=== PATIENT | male | born 1970 | race African-American/Black ===

== ENCOUNTER 2020-01-23 16:34 | Outpatient (REF) | payer OTHER, SELFPAY ==
[2020-01-23 18:22] LABS: Glucose Urine UA NEG (NEG); Leukocyte Esterase Urine NEG (NEG); Nitrite Urine NEG (NEG); Specific Gravity - Urine >= 1.030 (1.005-1.025); Urine Blood TRACE (NEG); Urine Ketones NEG (NEG); Urine Protein NEG (NEG-TRACE)
[2020-01-23 18:24] LABS: Appearance Urine CLEAR; Color Urine YELLOW
[2020-01-23 18:38] LABS: RBC Urine 0-2 /HPF (0); WBC Urine 0 /HPF (0-4)
[2020-01-23 18:43] LABS: Alanine Aminotransferase 32 U/L (0-40); Albumin Level 4.2 g/dL (3.5-5.0); Alkaline Phosphatase 77 U/L (39-117); Anion Gap 11 (12-20); Aspartate Amino Transferase 25 U/L (5-37); Bilirubin Total 0.4 mg/dL (0.0-1.0); Blood Urea Nitrogen 10 mg/dL (9-16); Calcium 9.2 mg/dL (8.4-10.2); Carbon Dioxide 31 mmol/L (22-29); Chloride 102 mmol/L (96-108); Cholesterol 199 mg/dL; Estimated Glomerular Filt Rate > 60; Glucose Fasting 89 mg/dL (60-99); HDL Cholesterol 35 mg/dL; LDL Cholesterol Calculated 154 mg/dl; Potassium 4.4 mmol/l (3.3-5.1); Sodium 140 mmol/L (135-145); Total Protein 7.6 g/dL (6.5-8.0); Triglycerides 51 mg/dL
[2020-01-23 18:47] LABS: Creatinine Urine 233.79 mg/dL; Microalbum/Creatinine Ratio Ur 2.5 ug/mg cr
[2020-01-23 18:59] LABS: TSH reflex Free T4 1.19 mIU/mL (0.32-4.0)
[2020-01-23 20:48] LABS: Reflex LDLD? No
== END 2020-01-23 16:35 | disposition home or self-care (01) ==
LOC: HO.LAB 16:34
PROVIDERS: PCP Internal Medicine; Visit Provider Internal Medicine
DX: E11.9 Type 2 diabetes mellitus without complications (principal); I10 Essential (primary) hypertension; E78.00 Pure hypercholesterolemia, unspecified; E66.9 Obesity, unspecified
CPT/HCPCS: 80053; 80061; 81001; 82043; 84443

== ENCOUNTER → 2020-02-06 13:56 | Outpatient (BNVA) | payer OTHER, SELFPAY | PROVIDERS: PCP Internal Medicine; Referring Provider Internal Medicine; Visit Provider Internal Medicine | DX: R55 Syncope and collapse (principal); R94.31 Abnormal electrocardiogram [ECG] [EKG] | CPT/HCPCS: 99202 ==

== ENCOUNTER → 2020-02-24 08:44 | Outpatient (REF) | payer OTHER, SELFPAY ==
--- NOTE | 2020-02-24 08:49 | CA_ITS ---
Acquisition Time: 2020-02-24 10:28:38 Total Exercise Time: 00:06:50 Test Indications: Syncope Medications: ATORVASTATIN VALSARTAN Protocol: MONICA Max HR: 176 BPM 104% of Pred: 169 BPM Max BP: 150/070 mmHG Max Work Load: 8.2 METS Exercise stress test using Monica protocol. Total of 6 min 50 sec. METS 8.2. THR 104 %. Pt reported feeling dizzy, HR up to 173, tesdt stopped. Denies any anginal sx. EKG with RBBB, occ PVC's in recovery. No ischemic changes. Normotensive response to exercise. Test reviewed with Dr. Pedraza. Referred By: Matt Pedraza Overread By: Jennifer Strong
--- NOTE | 2020-02-24 08:49 | CA_ITS ---
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 The visually estimated ejection fraction is between 60-65%. - There is moderately increased left ventricular wall thickness. - No obvious valvular pathology seen on this study. Findings Left Ventricle Normal left ventricular cavity size. There is moderately increased left ventricular wall thickness. The left ventricular systolic function is normal. The visually estimated ejection fraction is between 60-65%. There is no evidence of regional wall motion abnormalities. Diastolic function is normal for age. Right Ventricle Normal right ventricular cavity size and systolic function. Atria The left atrium is normal in size. The right atrium is normal in size. Aortic Valve There is a normal trileaflet aortic valve. There is no aortic valve stenosis. There is no aortic valve regurgitation. Mitral Valve The mitral valve appears normal. There is trace mitral valve regurgitation. There is no mitral valve stenosis. Pulmonic Valve The pulmonic valve was not well visualized. Tricuspid Valve Normal tricuspid valve structure. There is trace tricuspid valve regurgitation. The pulmonary artery systolic pressure is normal. Great Vessels The aortic annulus, sinuses of valsalva, and asc aorta are normal in size. Venous The inferior vena cava is normal in size and collapses greater than 50% with inspiration. Pericardium/Pleural There is no evidence of pericardial effusion. Prior Study Comparison No prior study available for comparison. Recommendations, Care & Conclusions No obvious valvular pathology seen on this study. Measurements 2D Linear Measurements IVSd: 1.44 0.6-0.9/0.6-1.0 cm LVIDd: 5.02 3.9-5.3/4.2-5.9 cm LVIDd Index: 2.36 2.4-3.2/2.2-3.1 cm/m2 LVIDs: 2.86 2.0-3.6 cm LVPWd: 1.36 0.7-1.1 cm Ao Root: 3.40 2.1-3.5 cm LA Diam: 3.70 2.7-3.8/3.0-4.0 cm LAIDs Index: 1.74 1.5-2.3 cm/m2 LV Mass: 365.77 67-162/88-224 g LV Mass Index: 171.72 43-95/49-115 g/m2 LVOT Diam: 2.20 3.0+(-)1.3 cm 2D Systolic Function EF 4C: 62.10 >55% EF 2C: 50.60 >55% EF BiP: 55.90 >55% Mitral Valve MV Pk E: 0.95 MV PK A: 0.64 MV Decel Time: 229.00 E/A: 1.50 E'Lateral: 12.80 E'Medial: 7.45 E/E' Med: 12.80 E/E' Lat: 7.40 PHT: 67.00 MVA PHT: 3.28 Decel [place]: 4.15 Aortic Valve AoV Pk Brayden: 1.38 AoV Mn Brayden: 0.96 AoV VTI: 0.30 AoV Pk Grad: 8.00 Aov Mn Grad: 4.00 ENRRIQUE Cont.VTI: 2.88 LVOT LVOT Pk Brayden: 1.00 LVOT Mn Brayden: 0.74 LVOT VTI: 0.23 LVOT Pk Grad: 4.00 LVOT Mn Grad: 2.00 LVOT Diam: 2.20 LVOT Area: 3.80 Diastolic Function MV Pk E: 0.95 MV Pk A: 0.64 E/A: 1.50 E'Medial: 7.45 E/E' Med: 12.80 E' Laterial: 12.80 E/E' Lat: 7.40 Tricuspid Valve TR Pk Brayden: 1.64 TR Pk Grad: 11.00 RA Press: 3.00 RVSP: 14.00 Great Vessels Aorta Ao Root-2D: 3.40 2.0-3.7 cm Ao Asc: 3.10 2.1-3.4 cm Pulmonary Valve PV Pk Brayden: 1.19 Peak PV Grad: 6.00 Updated in Other Vendor System with Status of Final Matt Pedraza MD electronically signed on 02/26/2020 9:46:13 AM with status of Final
== END ==
LOC: HO.CARD 08:44
PROVIDERS: Visit Provider Internal Medicine
DX: I25.10 Atherosclerotic heart disease of native coronary artery without angina pectoris (principal); R55 Syncope and collapse
CPT/HCPCS: 93017; 93306

== ENCOUNTER → 2020-03-21 12:48 | Outpatient (BNVA) | payer OTHER, SELFPAY | PROVIDERS: PCP Internal Medicine; Visit Provider Internal Medicine | DX: Z76.89 Persons encountering health services in other specified circumstances (principal) ==

== ENCOUNTER → 2021-03-25 14:57 | Outpatient (BNVA) | payer OTHER, SELFPAY | PROVIDERS: PCP Internal Medicine; Referring Provider Internal Medicine; Visit Provider Internal Medicine | DX: R94.31 Abnormal electrocardiogram [ECG] [EKG] (principal); I45.2 Bifascicular block; I10 Essential (primary) hypertension; E66.9 Obesity, unspecified; Z68.36 Body mass index [BMI] 36.0-36.9, adult | CPT/HCPCS: 93005; 99212 ==

== ENCOUNTER 2021-04-16 14:30 | Emergency (ER) | payer OTHER, SELFPAY ==
--- NOTE | ~2021-04-16 | CT_ITS ---
EXAMINATION: CT HEAD WITHOUT CONTRAST CLINICAL INFORMATION: Facial twitch COMPARISON: None TECHNIQUE: Contiguous axial imaging was performed from the skull base to vertex without intravenous administration of contrast. Coronal and sagittal reformatted images are performed at CT scanner This CT examination was performed using dose optimization techniques as appropriate, variously including the following: *Automated exposure control *Adjustment of mA and/or kV according to patient size (this includes techniques or standardized protocols for targeted exams where dose is matched to indication/reason for exam; i.e. extremities or head) *Use of iterative reconstruction technique DLP: 805 mGy-cm FINDINGS: There is no evidence of acute intracranial hemorrhage or territorial infarction. No abnormal mass effect or midline shift is seen. Rhodes to white matter differentiation is well preserved. No extra-axial fluid collections are identified. The ventricles are normal in size. There is no abnormal attenuation within the brain parenchyma. The osseous structures and soft tissues are normal. The mastoid air cells and visualized portions of the paranasal sinuses are well aerated. CT/CT head/brain wo con IMPRESSION: No acute intracranial pathology.
[2021-04-16 15:22] VITALS: BP 151/84; PULSE 70; RESP 18; TEMP 36.4; O2SAT 97; BMI 35.7
--- NOTE | 2021-04-16 15:56 | ED_ITS ---
HPI - General Adult General Chief complaint: General Medical Stated complaint: abnormal involuntary facial movement Time Seen by Provider: 04/16/21 15:46 Source: patient Mode of arrival: ambulatory Limitations: no limitations History of Present Illness HPI narrative: 50 y/o male with history of DM not on insulin, HTN, HLD, obesity, hx syncope, hx bifasicular block who presents to the ER for evaluation of an involuntary facial twitch near his lip that happened 2 days ago and an involuntary twitch of the eyebrow that happened today. He reports only 2 isolated events and both were very transient. He wanted to get checked out because I thought I might be having a stroke. He denies any facial numbness, tingling, weakness, dropping or slurred speech. No extremity weakness, numbness or tingling. No difficulty walking. MD complaint: facial twitching Onset (ago): day(s) (2) Location: face Radiation: non-radiation Severity: mild Pain Consistency: now resolved Relieving factors: none Exacerbating factors: none Associated symptoms: denies other symptoms Treatments prior to arrival: none Related Data Previous Rx's Medication Instructions Recorded atorvastatin 10 mg tablet 10 mg PO DAILY 30 Days #30 tab 06/07/20 valsartan 40 mg tablet 40 mg PO DAILY #30 tab 03/08/21 Allergies Allergy/AdvReac Type Severity Reaction Status Date / Time amlodipine AdvReac Intermediate Chest pain Verified 03/25/21 15:06 lisinopril AdvReac Intermediate Chest pain Verified 03/25/21 15:06 Review of Systems Review of Systems: Constitutional: No Fever, No Chills Eyes: No Eye Pain, No Swelling, No Redness Cardiovascular: No Chest Pain, No SOB Respiratory: No Cough, No Sputum Gastrointestinal: No Nausea, No Vomiting Musculoskeletal: No joint pain, No Myalgias Skin: No Skin Lesions, No rash Neuro: No Weakness, No Numbness, No Dizziness, No Headache Psych: + Anxiety/Panic, No Depression Heme/Lymph: No Bruising, No Lymphadenopathy Endocrine: No Polyuria, No Polydipsia PMFSH Past Medical History Medical History (Updated 04/16/21 @ 16:10 by SAGAR Dodge) Benign essential hypertension Essential hypertension Obesity (BMI 30-39.9) Pure hypercholesterolemia Type 2 diabetes mellitus with unspecified complications Type 2 diabetes mellitus without complication, with no history of insulin use Surgical History No pertinent past surgical history Family History Family History Father No problems noted. Mother COVID-19 Brother No problems noted. Brother No problems noted. Social History Social History (Updated 03/25/21 @ 15:06 by JOLEEN Dobbs) Alcohol intake: never Patient Tobacco Use Status: Never used Tobacco Advance Directives: No Advance Directives Information Provided: Yes Physical Exam Vital Signs: Vital Signs: Last Vital Signs Temp 97.5 F 04/16/21 15: Pulse 70 04/16/21 15: Resp 18 04/16/21 15: BP 151/84 H 04/16/21 15: Pulse Ox 97 04/16/21 15: BMI result Body Mass Index 35.7 Appearance: Alert. Oriented X3. No acute distress. Eyes: Pupils equal, round and reactive to light. EOMI. no visual field deficits ENT: Pharynx normal. Neck: Normal inspection. Neck supple. CVS: Normal heart rate and rhythm. Pulses normal. Respiratory: No respiratory distress. Breath sounds normal. Skin: Skin warm and dry. Normal skin color. Normal skin turgor. No rashes. Extremities: No lower extremity edema. Neuro: Oriented X 3. No motor deficit. No sensory deficit. No facial asymmetry. Normal speech. Steady gait. Strength equal and symmetrical througho ut. Course Course Course Narrative: 50 y/o male presenting with 2 isolated instances of facial twi tches in the last 2 days. Neuro exam is completely normal. He is worried about a stroke. We discussed the presentation of a stroke and how is exam is not consistent with this however he still worried about stroke symptoms. Will check his basic lab workup including his electrolytes and also get a CT scan of his head for reassurance. We discussed the radiation exposure and has a likelihood of stroke is very low given his exam and presentation however he is willing to accept the radiation to help ease his mind. Reevaluation(s) Reevaluation #1: Lab workup and CT scan are normal. Patient's facial twitching most likely due to stress and anxiety. Stable for discharge home. Encouraged take his medications as prescribed by his doctor in follow-up with his PCP we has not seen in quite some time. Medical Decision Making Lab Data Result diagrams: 04/16/21 16:23 04/16/21 16:23 Labs: Lab Results 04/16/21 04/16/21 Range/Units 16:23 16:23 WBC 7.7 (4.8-10.8) X10*3/uL RBC 4.90 (4.60-5.80) X10*6/uL Hgb 13.8 L (14.0-18.0) g/dl Hct 43.0 (42.0-52.0) % MCV 87.8 (80.0-98.0) fL MCH 28.2 (27.0-33.0) pg MCHC 32.1 (31.0-36.0) g/dl RDW 12.7 (11.0-16.0) % Plt Count 246 (160-400) X10*3/uL MPV 10.2 (9.4-12.4) fL Immature Gran % (Auto) 0.3 (0.0-0.4) % Neut % (Auto) 58.2 (45-73) % Lymph % (Auto) 32.7 (20-40) % [place] % (Auto) 7.5 (2-11) % Eos % (Auto) 0.9 (0-4) % Baso % (Auto) 0.4 (0-2) % Lymph # (Auto) 2.5 (1.2-4.9) X10*3/uL [place] # (Auto) 0.6 (0.1-1.2) X10*3/uL Eos # (Auto) 0.1 (0.0-0.4) X10*3/uL Baso # (Auto) 0.0 (0.0-0.2) X10*3/uL Abs Immat Gran (auto) 0.02 (0.00-0.03) X10*3/uL Absolute Neuts (auto) 4.5 (2.0-8.3) x10*3/uL Absolute Nucleated RBC 0.000 (0.0-0.012) X10*3/uL Nucleated RBC % (auto) 0.0 (0.0-0.2) /100WBC Sodium 139 (135-145) mmol/L Potassium 4.3 (3.3-5.1) mmol/L Chloride 102 (96-108) mmol/L Carbon Dioxide 31 H (22-29) mmol/L Anion Gap 10 L (12-20) BUN 12 (9-16) mg/dL Creatinine 1.20 (0.5-1.4) mg/dL Estim Creat Clear Calc 85.2 Estimated GFR > 60 Random Glucose 131 H (60-115) mg/dL Calcium 10.0 D (8.4-10.2) mg/dL Magnesium 2.0 (1.6-2.6) mg/dL Discharge Plan Discharge Clinical Impression: Facial twitching Patient Disposition: Home, Self-Care Instructions: Stress (ED) Additional Instructions: All of your lab work was normal. Your electrolytes were normal. Your glucose was slightly elevated, recommend taking her diabetic medication as directed by her doctor Your blood pressure was also elevated 150/80, recommend taking her blood pressure medication as prescribed by . Your head CT was normal. No evidence of a stroke. The muscle twitching was most likely due to stress and anxiety. Recommend following up with her primary care. If you develop new or worsening symptoms call 911 or come back to the ER for further evaluation. Prescriptions: No Action atorvastatin 10 mg tablet 10 mg PO DAILY 30 Days Qty: 30 RF: 3 valsartan 40 mg tablet 40 mg PO DAILY Qty: 30 RF: 0
[2021-04-16 16:27] LABS: MANUAL DIFF FLAG NO
[2021-04-16 16:29] LABS: Basophils Percent Auto 0.4 % (0-2); Eosinophils Absolute Auto 0.1 X10*3/uL (0.0-0.4); Eosinophils Percent Auto 0.9 % (0-4); Hemoglobin 13.8 g/dl (14.0-18.0); Imm Gran Abs Auto 0.02 X10*3/uL (0.00-0.03); Imm Gran Pct Auto 0.3 % (0.0-0.4); Lymphocytes Absolute Auto 2.5 X10*3/uL (1.2-4.9); Lymphocytes Percent Auto 32.7 % (20-40); Mean Corpuscular HGB Conc 32.1 g/dl (31.0-36.0); Mean Corpuscular Hemoglobin 28.2 pg (27.0-33.0); Mean Corpuscular Volume 87.8 fL (80.0-98.0); Mean Platelet Volume 10.2 fL (9.4-12.4); Monocytes Absolute Auto 0.6 X10*3/uL (0.1-1.2); Monocytes Percent Auto 7.5 % (2-11); Neutrophils Absolute Auto 4.5 x10*3/uL (2.0-8.3); Neutrophils Percent Auto 58.2 % (45-73); Platelet Count 246 X10*3/uL (160-400); Red Cell Distribution Width 12.7 % (11.0-16.0); White Blood Count 7.7 X10*3/uL (4.8-10.8)
[2021-04-16 16:43] LABS: Anion Gap 10 (12-20); Blood Urea Nitrogen 12 mg/dL (9-16); Carbon Dioxide 31 mmol/L (22-29); Chloride 102 mmol/L (96-108); Creatinine Clr Calc Pharmacy 85.2; Estimated Glomerular Filt Rate > 60; Glucose Random 131 mg/dL (60-115); Potassium 4.3 mmol/L (3.3-5.1); Sodium 139 mmol/L (135-145)
== END 2021-04-16 17:22 | disposition home or self-care (01) ==
LOC: HO.ED 16:25
PROVIDERS: Physician Assistant; Emergency Provider Emergency Medicine; PCP Internal Medicine
DX: R25.3 Fasciculation (principal); Z79.899 Other long term (current) drug therapy
CPT/HCPCS: 36415; 70450; 80048; 83735; 85025; 99283; 99284

== ENCOUNTER 2022-10-13 11:34 | Outpatient (AMB) | payer OTHER, SELFPAY ==
--- NOTE | 2022-10-13 13:22 | MHC.OFFWIV ---
Intake Vital Signs 10/13/22 13:25 BP 122/80 Blood Pressure Location Lt brachial Position Sitting Pulse 70 Pulse Source Pulse Oximeter Pulse Oximetry (%) 96 Oxygen Delivery Method Room Air Intake Visit Reasons: EST/left eye irritation(LOBBY) Intake Note: Patient here for left eye irritation, slight discharge which has been present for about 4-5 days. Patient Tobacco Use Status: Never used Tobacco Allergies amlodipine Adverse Reaction (Intermediate, Verified 10/13/22 13:24) Chest pain lisinopril Adverse Reaction (Intermediate, Verified 10/13/22 13:24) Chest pain Do you need a note to return to daycare/school/sports/work: No HPI EST/left eye irritation(LOBBY) HPI Details Patient presents with left eye irritation times 4-5 days after an insect flew into his eye. He has tried Visine with little relief. He did flush his eyes out at that time. He is unsure of type of insect or if it bit or stung him. He notes eyes initially felt dry now they are tearing with mild discharge. He admits to foreign body sensation. [facility] Medical History (Updated 04/17/21 @ 00:01 by Sunitha Elizabeth) Benign essential hypertension Essential hypertension Obesity (BMI 30-39.9) Pure hypercholesterolemia Type 2 diabetes mellitus with unspecified complications Type 2 diabetes mellitus without complication, with no history of insulin use Surgical History No pertinent past surgical history Family History Father No problems noted. Mother COVID-19 Brother No problems noted. Brother No problems noted. Social History (Updated 03/25/21 @ 15:06 by JOLEEN Dobbs) Alcohol intake: never Patient Tobacco Use Status: Never used Tobacco Review of Systems Const Reports as per HPI and Reports no additional complaints Eyes Reports no additional complaints, Denies blurry vision, Denies diplopia, Denies loss of vision and Denies other visual disturbances Skin/Breast Denies lesions Neuro Reports no additional complaints, Reports as per HPI and Denies loss of vision Physical Exam Vital Signs: Last Vital Signs Pulse 70 10/13/22 13:25 BP 122/80 10/13/22 13:25 Pulse Ox 96 10/13/22 13:25 Oxygen Delivery Method Room Air 10/13/22 13:25 Const General: cooperative, comfortable and no acute distress Orientation/consciousness: patient oriented x3 HEENT Head: Yes normal to inspection Face and sinus: Yes normal facial exam Eyes Visual Guzman: normal visual guzman by confrontation Alignment and Position: alignment normal Eyelids: Yes eyelid abnormality (Mild edema there is a area of redness on the lower lateral lid) Conjunctivae: conjunctival abnormal left conjunctival injection diffuse and discharge mucoid; without chemosis, without pterygia and without subconjunctival hemmorhages Sclerae: scleral abnormal left scleral injection diffuse; without foreign bodies and without hemorrhages Pupils: Equal, round and reactive pupils present EOM: EOMs intact bilaterally (No pain) Neuro General: patient oriented x3 Cranial nerves: Yes Equal, round and reactive pupils present Assessment & Plan Assessment & Plan (1) Conjunctivitis of left eye: Code(s): H10.9 - Unspecified conjunctivitis Qualifiers: Conjunctivitis type: acute Acute conjunctivitis type: unspecified Qualified Code(s): H10.32 - Unspecified acute conjunctivitis, left eye Plan: Advised patient used Polytrim in the left eye q.i.d. x7 days. Return to clinic if symptoms do not improve or worsen in any way. Can also use Tylenol Motrin orally for swelling and pain. Medications: New polymyxin B sulf-trimethoprim 10,000 unit- 1 mg/mL (Polytrim) left eye- while awake; do not exceed 6 doses in 24 hours 1 drp ophthalmic (eye) QID 7 days 10 mL 0RF Coding Level of Care Code Est Pt Level 3 (16786) Diagnoses Conjunctivitis of left eye H10.32 Conjunctivitis type: acute Acute conjunctivitis type: unspecified
[2022-10-13 13:25] VITALS: BP 122/80; PULSE 70; O2SAT 96
== END 2022-10-13 13:53 | disposition home or self-care (01) ==
PROVIDERS: PCP Internal Medicine; Visit Provider Physician Assistant
DX: H10.32 Unspecified acute conjunctivitis, left eye (principal)
CPT/HCPCS: 99213

== ENCOUNTER 2023-02-04 08:19 | Outpatient (AMB) | payer OTHER, SELFPAY ==
[2023-02-04 08:28] VITALS: BP 122/84; PULSE 76; O2SAT 97; BMI 35.6
--- NOTE | 2023-02-04 08:28 | A.OFFPC_ITS ---
Vital Signs 3 02/04/23 08:28 Height 5 ft 8 in Weight 234 lb 4 oz BMI 35.6 BP 122/84 Blood Pressure Location Lt brachial Position Sitting Pulse 76 Pulse Source Pulse Oximeter Pulse Oximetry (%) 97 Oxygen Delivery Method Room Air Intake Visit Reasons: LT eyelid swollen Accompanied by: Self / Same As Patient Allergies amlodipine Adverse Reaction (Intermediate, Verified 02/04/23 08:56) Chest pain lisinopril Adverse Reaction (Intermediate, Verified 02/04/23 08:56) Chest pain Medication List - Last Reconciled 02/04/23 by Alcides Gaines PA-C atorvastatin 10 mg PO DAILY 30 days polymyxin B sulf-trimethoprim 10,000 unit- 1 mg/mL (Polytrim) 1 drp ophthalmic (eye) QID 7 days valsartan 40 mg PO DAILY Tobacco use date assessed: 02/04/23 Dental Screening Dental Screen Date: 02/04/23 Did you have a dental visit in the last 12 months?: No Did you have a dental problem in the last 6 months where you did not have access to dental care?: No Was dental information given to patient?: No HPI LT eyelid swollen 2 HPI0 Details Patient is a 52-year-old male here today for problem visit. He reports his left eye has been swollen and notice some discharge from his left eye over the last 5 days. Has had similar symptoms many 2 months ago to which she was seen at the urgent care and was given antibiotic eyedrops. He reports initially the antibiotic eyedrops were helpful. Unfortunately he is left with a left upper eyelid stye. There is no visual deficits. [facility] Medical History (Updated 02/04/23 @ 08:43 by Alcides Gaines PA-C) Obesity (BMI 30-39.9) Type 2 diabetes mellitus without complication, with no history of insulin use Benign essential hypertension Pure hypercholesterolemia Essential hypertension Type 2 diabetes mellitus with unspecified complications Surgical History No pertinent past surgical history Family History Father No problems noted. Mother COVID-19 Brother No problems noted. Brother No problems noted. Social History Alcohol intake: never Patient Tobacco Use Status: Never used Tobacco service: No Cognitive needs: No Hearing needs: No Vision needs: No Questionnaire PHQ-9 Over the last 2 weeks, how often have you been bothered by any of the following problems? 1. Little interest or pleasure in doing things: not at all 2. Feeling down, depressed, or hopeless: not at all 3. Trouble falling or staying asleep, or sleeping too much: not at all 4. Feeling tired or having little energy: not at all 5. Poor appetite or overeating: not at all 6. Feeling bad about yourself - or that you are a failure or have let yourself or your family down: not at all 7. Trouble concentrating on things, such as reading the newspaper or watching television: not at all 8. Moving or speaking so slowly that other people could have noticed. Or the opposite - being so fidgety or restless that you have been moving around a lot more than usual: not at all 9. Thoughts that you would be better off or of hurting yourself in some way: not at all Total score: 0 Depression Screening Interpretation: Negative Depression Screening Done: Yes 56712 - PHQ-9 Billing: Yes Source: Developed by Drs. John Mcmahon, Monserrat Kinsey, Xavier Phoenix and colleagues, with an educational tiago from [employer]. Thrive Questionnaire Date Thrive assessed: 02/04/23 I am a: Patient What is your living situation today?: I have a steady place to live Within the past 12 months, did the food you bought not last and you didn't have the money to get more?: Never true Within the past 12 months, did you worry whether your food would run out before you got money to buy more?: Never true Do you have trouble paying for medicines?: No Do you have trouble getting transportation to medical appointments?: No Do you have trouble paying your heating and electricity bill?: No Do you have trouble taking care of your child, family member or friend?: No Do you have trouble with day-to-day activities such as bathing, preparing meals, shopping, managing finances, etc.?: No Are you currently unemployed and looking for a job?: No Are you interested in more education?: No Please select the resources that you would like help with: None Currently or been in a relationship where the following occur: no concerns reported AUDIT C Alcohol Use Questionnaire (AUDIT-C) 1. How often do you have a drink containing alcohol?: Never 3. How often do you have six or more drinks on one occasion?: Never Total Score: 0 MIGUELITO-7 AMB Questionnaire MIGUELITO-7 Date MIGUELITO - 7 assessed: 02/04/23 Feeling nervous, anxious, or on edge: 0 = Not at all Not being able to stop or control worryin = Not at all Worrying too much about different things: 0 = Not at all Trouble relaxin = Not at all Being so restless that it is hard to sit still: 0 = Not at all Becoming easily annoyed or irritable: 0 = Not at all Feeling afraid as if something awful might happen: 0 = Not at all Total MIGUELITO-7 score (0-4 normal; 5-9 mild; 10-14 moderate; 15-21 severe): 0 Source: Developed by Drs. John Mcmahon, Monserrat Kinsey, Xavier Phoenix and colleagues, with an educational tiago from [employer]. Review of Systems Const Denies headache(s) Eyes Denies loss of vision ENT Denies vertigo, Denies dizziness, Denies headache(s) and Denies sore throat Card Denies chest pain, Denies leg edema and Denies lightheadedness Resp Denies cough, Denies hemoptysis and Denies wheezing GI Denies abdominal pain, Denies melena, Denies constipation, Denies diarrhea and Denies vomiting Denies dysuria, Denies urinary frequency and Denies urinary urgency Musc Denies arthralgias, Denies joint swelling, Denies numbness and Denies tingling Neuro Denies Abnormal speech present, Denies behavioral changes, Denies vertigo, Denies dizziness, Denies headache(s), Denies loss of vision, Denies memory loss, Denies numbness and Denies tingling Psych Denies anxiety, Denies behavioral changes, Denies depression, Denies memory loss and Denies panic attacks Harsha/Lymph Denies easy bleeding and Denies easy bruising Aller/Immun Denies wheezing Physical exam (Primary Care) Vital Signs: Last Vital Signs Pulse 76 11/01/23 08:28 BP 122/84 02/04/23 08:28 Pulse Ox 97 02/04/23 08:28 Oxygen Delivery Method Room Air 02/04/23 08:28 BMI result Body Mass Index 35.6 Tobacco/Smoking Status: Tobacco use Status Tobacco use date assessed 02/04/23 02/04/23 08:35 Patient Tobacco Use Status Never used Tobacco 02/04/23 08:35 PHQ-9: PHQ-9 Score PHQ-9: Total score 0 02/04/23 08:35 Depression Screening Interpretation: Negative Thrive Assessment: Date of Thrive Assessment Date Thrive assessed 02/04/23 02/04/23 08:35 Currently or been in a relationship where the following occur: no concerns reported Const General: healthy appearing, no acute distress, alert and awake Nutritional Appearance: well nourished Orientation/consciousness: oriented to person, oriented to place and oriented to time HENMT Ears: TM's normal bilaterally General nose exam: Normal nasal mucous membranes and turbinates present Eyes Conjunctivae: conjunctivae normal Sclerae: sclerae normal Pupils: Equal, round and reactive pupils present Eyes/upper lids images: 2 1. UPPER EYELID STYE NOTED Neck Neck: Yes no lymphadenopathy and Yes no JVD Thyroid: Thyroid normal Carotids: no bruits Resp Effort & Inspection: normal respiratory effort and not tachypneic Auscultation: no crackles, no rales, no rhonchi and no wheezes Cardio Rate: regular rate Rhythm: regular rhythm Heart sounds: no murmurs and normal S1 and S2 GI Palpation (GI): Soft to palpation, nontender, no hepatomegaly and no splenomegaly Auscultation: normal bowel sounds Skin General skin exam: no rashes or lesions noted and dry skin Neuro General: oriented to person, oriented to place and oriented to time Cranial nerves: Yes Equal, round and reactive pupils present Speech: No Abnormal speech present Gait exam (Neuro): Normal gait present Motor exam (neuro): no tremor noted Extrem Right upper extremity: full ROM Left upper extremity: full ROM Right lower extremity: full ROM; no edema Left lower extremity: full ROM; no edema Psych Mental Status: mental status grossly normal Speech and movement: Normal speech and movement present Affect: normal affect Attitude: cooperative Thought process: Normal thought process present Assessment and Plan Assessment & Plan (1) Hordeolum internum of left eye: Code(s): H00.026 - Hordeolum internum left eye, unspecified eyelid Qualifiers: Eyelid: upper Qualified Code(s): H00.024 - Hordeolum internum left upper eyelid Plan: Patient has had a 2 month history of left upper eyelid stye.. Has used eyedrops and felt it was getting better. Now continues to have an upper eyelid stye. Advised on conservative treatment with warm compress and antibiotic eyedrops. He is interested in having it drained thus will place referral to Ophthalmology. Orders: Referrals 2 Ophthalmology Referral H00.024 - Hordeolum internum left upper eyelid Medications: Refilled 2 polymyxin B sulf-trimethoprim 10,000 unit- 1 mg/mL (Polytrim) left eye- while awake; do not exceed 6 doses in 24 hours 1 drp ophthalmic (eye) QID 7 days 10 mL 0RF H00.024 - Hordeolum internum left upper eyelid Coding Level of Care Code Est Pt Level 3 (03011) Diagnoses Hordeolum internum of left upper eyelid H00.024 Eyelid: upper
== END 2023-02-04 08:56 | disposition home or self-care (01) ==
PROVIDERS: PCP Internal Medicine; Visit Provider Physician Assistant
DX: H00.024 Hordeolum internum left upper eyelid (principal)
CPT/HCPCS: 99213

== ENCOUNTER 2023-02-10 11:14 | Outpatient (AMB) | payer OTHER, SELFPAY ==
--- NOTE | 2023-02-10 12:46 | AM.OFFWIN_ITS ---
Intake Vital Signs 02/10/23 12:50 Height 5 ft 8 in Weight 232 lb 8 oz BMI 35.3 BP 124/80 Blood Pressure Location Rt brachial Position Sitting Pulse 80 Pulse Source Pulse Oximeter Temp 98.3 F Temp Source Temporal Artery Scan Pulse Oximetry (%) 96 Oxygen Delivery Method Room Air Intake Visit Reasons: EST/back pain/left eye [id number] Intake Note: pt is here for c/o lower back pain and left eye irritation. Patient Tobacco Use Status: Never used Tobacco Allergies amlodipine Adverse Reaction (Intermediate, Verified 02/10/23 13:43) Chest pain lisinopril Adverse Reaction (Intermediate, Verified 02/10/23 13:43) Chest pain Medication List - Last Reconciled 02/10/23 by Elijah Faria MD atorvastatin 10 mg PO DAILY 30 days polymyxin B sulf-trimethoprim 10,000 unit- 1 mg/mL (Polytrim) 1 drp ophthalmic (eye) QID 7 days valsartan 40 mg PO DAILY Do you need a note to return to daycare/school/sports/work: Yes HPI EST/back pain/left eye [phone] HPI Details 52-year-old male presents to the office for a sick visit. He has 2 complaints. Patient is reporting a swelling in the left eye. Symptoms present for the past few days. He is also complaining of low back pain. Does not recall any fall or injury prior to the onset of symptoms. Pain is worse on bending forwards. No urinary incontinence. [facility] Medical History (Updated 02/04/23 @ 08:43 by Alcides Gaines PA-C) Obesity (BMI 30-39.9) Type 2 diabetes mellitus without complication, with no history of insulin use Benign essential hypertension Pure hypercholesterolemia Essential hypertension Type 2 diabetes mellitus with unspecified complications Surgical History No pertinent past surgical history Family History Father No problems noted. Mother COVID-19 Brother No problems noted. Brother No problems noted. Social History Alcohol intake: never Patient Tobacco Use Status: Never used Tobacco service: No Cognitive needs: No Hearing needs: No Vision needs: No Physical Exam Vital Signs: Last Vital Signs Temp 98.3 F 02/10/23 12:50 Pulse 80 02/10/23 12:50 BP 124/80 02/10/23 12:50 Pulse Ox 96 02/10/23 12:50 Oxygen Delivery Method Room Air 02/10/23 12:50 BMI result Body Mass Index 35.3 Const General: cooperative and healthy appearing Nutritional Appearance: well nourished Orientation/consciousness: patient oriented x3 Limitations: no limitations HEENT Other: Left eye: A swelling on the upper eyelid, corresponding tarsal conjunctiva is congested. Head: Yes normal to inspection Eyes General: appearance normal, both eyes and all related structures Neck Neck: Yes normal visual inspection Chest Chest palpation & inspection: normal palpation of entire chest wall Resp Effort & Inspection: normal respiratory effort General: Yes no CVA tenderness Back/Spine/Pelvis Back: no CVA tenderness Neuro General: patient oriented x3 Assessment & Plan Assessment & Plan (1) Hordeolum internum of left eye: Code(s): H00.026 - Hordeolum internum left eye, unspecified eyelid Qualifiers: Eyelid: upper Qualified Code(s): H00.024 - Hordeolum internum left upper eyelid Plan: ophthalmic ointment twice a day. Warm compress. (2) Low back pain: Code(s): M54.50 - Low back pain, unspecified Plan: Meloxicam and cyclobenzaprine called in. . Patient was advised rest. Note for work if necessary provided. Once pain symptoms subside, patient should start physical therapy. If symptoms worsen to follow-up here. Coding Level of Care Code Est Pt Level 4 (46254) Diagnoses Hordeolum internum of left upper eyelid H00.024 Eyelid: upper Low back pain M54.50
[2023-02-10 12:50] VITALS: BP 124/80; PULSE 80; TEMP 36.8; O2SAT 96; BMI 35.3
== END 2023-02-10 14:03 | disposition home or self-care (01) ==
PROVIDERS: PCP Internal Medicine; Visit Provider Internal Medicine
DX: H00.024 Hordeolum internum left upper eyelid (principal); M54.50 Low back pain, unspecified
CPT/HCPCS: 81003; 99214

== ENCOUNTER 2023-09-25 11:28 | Outpatient (AMB) | payer OTHER, SELFPAY ==
[2023-09-25 11:32] VITALS: BP 148/72; PULSE 89; O2SAT 98; BMI 34.8
--- NOTE | 2023-09-25 11:32 | MHC.PC.OV ---
Vital Signs 09/25/23 11:32 Height 5 ft 8 in Weight 229 lb BMI 34.8 BP 148/72 H Blood Pressure Location Lt brachial Position Sitting Pulse 89 Pulse Source Pulse Oximeter Pulse Oximetry (%) 98 Oxygen Delivery Method Room Air Intake Visit Reasons: Bilateral Feet Pain Allergies amlodipine Adverse Reaction (Intermediate, Verified 09/25/23 12:03) Chest pain lisinopril Adverse Reaction (Intermediate, Verified 09/25/23 12:03) Chest pain Medication List - Last Reconciled 09/25/23 by Jarvis Joseph MD gabapentin 100 mg PO TID Tobacco use date assessed: 09/25/23 Dental Screening Dental Screen Date: 09/25/23 Did you have a dental visit in the last 12 months?: No Did you have a dental problem in the last 6 months where you did not have access to dental care?: No Was dental information given to patient?: No HPI Bilateral Feet Pain HPI Details Patient comes in today for his follow up visit - was last seen by me over 3 years ago in 02/2020 Patient states that he currently feels okay He continues to experience frequent pain and swelling of his feet and ankles as well as over the distal third of both lower legs - notes that these symptoms are often worse towards the end of the day and that he has been wearing some knee-high compression socks daily to help keep his symptoms in check 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 unit He still takes his Gabapentin 100 mg Q HS and is wondering if this is even helping Patient used to take Metformin for his diabetes but due to reports that Metformin may be associated with cancer, he asked to be switched over to Pioglitazone 15 mg QD which he is currently no longer taking He also used to take Atorvastatin for his cholesterol and Valsartan for his blood pressure but he also apparently self-discontinued both Rx at some point as he wanted to try controlling his issues with diet modification alone (even though he has failed this at least a couple of times in the past) He presently denies any headaches or dizziness Denies any chest pains, no SOB No nausea/vomiting, no abdominal pain No change in bowel habits noted PFSH Medical History (Updated 09/27/23 @ 21:00 by Jarvis Joseph MD) Type 2 diabetes mellitus with hyperglycemia, without long-term current use of insulin Obesity (BMI 30-39.9) Pure hypercholesterolemia Essential hypertension Surgical History No pertinent past surgical history Family History Father No problems noted. Mother COVID-19 Brother No problems noted. Brother No problems noted. Social History Alcohol intake: never Patient Tobacco Use Status: Never used Tobacco Tobacco use type: Cigarette e-Cigarette/Vaping Use: Never Used Second Hand Smoke Exposure: No service: No Cognitive needs: No Hearing needs: No Vision needs: No Questionnaire PHQ-9 Over the last 2 weeks, how often have you been bothered by any of the following problems? 1. Little interest or pleasure in doing things: not at all 2. Feeling down, depressed, or hopeless: not at all 3. Trouble falling or staying asleep, or sleeping too much: not at all 4. Feeling tired or having little energy: not at all 5. Poor appetite or overeating: not at all 6. Feeling bad about yourself - or that you are a failure or have let yourself or your family down: not at all 7. Trouble concentrating on things, such as reading the newspaper or watching television: not at all 8. Moving or speaking so slowly that other people could have noticed. Or the opposite - being so fidgety or restless that you have been moving around a lot more than usual: not at all 9. Thoughts that you would be better off or of hurting yourself in some way: not at all Total score: 0 Depression Screening Interpretation: Negative Depression Screening Done: Yes [id number] - PHQ-9 Billing: Yes Source: Developed by Drs. John Mcmahon, Monserrat Kinsey, Xavier Phoenix and colleagues, with an educational tiago from [employer]. Thrive Questionnaire Date Thrive assessed: 09/25/23 I am a: Patient What is your living situation today?: I have a steady place to live Within the past 12 months, did the food you bought not last and you didn't have the money to get more?: Never true Within the past 12 months, did you worry whether your food would run out before you got money to buy more?: Never true Do you have trouble paying for medicines?: No Do you have trouble getting transportation to medical appointments?: No Do you have trouble paying your heating and electricity bill?: No Do you have trouble taking care of your child, family member or friend?: No Do you have trouble with day-to-day activities such as bathing, preparing meals, shopping, managing finances, etc.?: No Are you currently unemployed and looking for a job?: No Are you interested in more education?: No Please select the resources that you would like help with: None Currently or been in a relationship where the following occur: no concerns reported THRIVE Score: 0 AUDIT C Alcohol Use Questionnaire (AUDIT-C) 1. How often do you have a drink containing alcohol?: Never 3. How often do you have six or more drinks on one occasion?: Never Total Score: 0 Score Reviewed/Action Taken: Yes MIGUELITO-7 AMB Questionnaire MIGUELITO-7 Date MIGUELITO - 7 assessed: 09/25/23 Feeling nervous, anxious, or on edge: 0 = Not at all Not being able to stop or control worryin = Not at all Worrying too much about different things: 0 = Not at all Trouble relaxin = Not at all Being so restless that it is hard to sit still: 0 = Not at all Becoming easily annoyed or irritable: 0 = Not at all Feeling afraid as if something awful might happen: 0 = Not at all Total MIGUELITO-7 score (0-4 normal; 5-9 mild; 10-14 moderate; 15-21 severe): 0 Source: Developed by Drs. John Mcmahon, Monserrat Kinsey, Xavier Phoenix and colleagues, with an educational tiago from [employer]. Review of Systems Const Denies chills, Denies fatigue, Denies fever(s) and Denies headache(s) ENT Denies dysphagia, Denies dizziness, Denies otalgia, Denies headache(s), Denies neck pain, Denies odynophagia and Denies sore throat Card Denies chest pain, Denies palpitations and Denies dyspnea Resp Denies cough and Denies dyspnea GI Denies abdominal pain, Denies constipation, Denies dysphagia, Denies heartburn, Denies diarrhea, Denies nausea, Denies odynophagia and Denies vomiting Denies difficulty urinating, Denies dysuria, Reports nocturia and Reports urinary frequency Musc Denies back pain, Reports arthralgias ((+) mild tenderness over both ankles) and Denies neck pain Skin/Breast Denies rash Neuro Denies dizziness and Denies headache(s) Endo Denies fatigue and Denies palpitations Physical exam (Primary Care) Vital Signs: Last Vital Signs Pulse 89 09/25/23 11:32 BP 148/72 H 09/25/23 11:32 Pulse Ox 98 09/25/23 11:32 Oxygen Delivery Method Room Air 09/25/23 11:32 BMI result Body Mass Index 34.8 Tobacco/Smoking Status: Tobacco use Status Tobacco use date assessed 09/25/23 09/25/23 11:37 Patient Tobacco Use Status Never used Tobacco 09/25/23 11:33 Tobacco use type Cigarette 09/25/23 11:55 e-Cigarette/Vaping Use Never Used 09/25/23 11:37 PHQ-9: PHQ-9 Score PHQ-9: Total score 0 09/27/23 20:47 Depression Screening Interpretation: Negative Thrive Assessment: Date of Thrive Assessment Date Thrive assessed 09/25/23 09/25/23 11:42 Currently or been in a relationship where the following occur: no concerns reported Const General: no acute distress and alert HENMT Ears: TM's normal bilaterally and EAC's normal Throat: Yes posterior oropharynx normal and Yes tonsils normal (no TP congestion) Neck Neck: Yes no lymphadenopathy and Yes supple Thyroid: Thyroid normal Resp Auscultation: clear to auscultation bilaterally, no rales and no wheezes Cardio Rate: regular rate Rhythm: regular rhythm Heart sounds: no murmurs GI Palpation (GI): Soft to palpation and nontender Auscultation: normal bowel sounds General: Yes no CVA tenderness Back/Spine/Pelvis Back: no CVA tenderness Thoracic/Lumbar Spine: No lumbar spinal tenderness Skin Lesions: no lesions Rashes: no rashes Extrem General: No clubbing, No cyanosis and Yes edema (1+ bipedal edema) Results AMB Hemoglobin A1c AMB Hemoglobin A1c 7.8 % Last Edit by Bambi Monroe CMA on 09/25/23 11:58 Results Reviewed Results Reviewed: Laboratory Last Values Hgb A1c (Clinic) 7.8 % (4.0-6.0) H 09/25/23 11:58 Assessment and Plan Assessment & Plan (1) Pure hypercholesterolemia: Code(s): E78.00 - Pure hypercholesterolemia, unspecified Plan: Reinforced low cholesterol diet Patient used to take Atorvastatin but he self-discontinued his Rx as he wanted to try controlling his cholesterol levels with diet modification alone Patient has not had any follow up labs done in the past few years - he is reminded that his LDL cholesterol was still elevated at 154 mg/dl when they were last checked in 01/2020 Will look into these again when patient returns in a few months for his next annual physical examination (2) Essential hypertension: Code(s): I10 - Essential (primary) hypertension Plan: Reinforced low sodium diet - goal is systolic BP of 120 mm or less Patient used to take Valsartan but also self-discontinued his Rx a while back He is advised that his blood pressure is still quite elevated today at 148/72 (3) Type 2 diabetes mellitus with hyperglycemia, without long-term current use of insulin: Code(s): E11.65 - Type 2 diabetes mellitus with hyperglycemia Plan: His in-office HgbA1c done today is at 7.8% - goal is at least 7.0% or less Reinforced diabetic diet Patient used to take Pioglitazone 15 mg QD (was also on Metformin previously but he asked to be switched out a few years ago after reading that Metformin can cause cancer) but he also self-discontinued Pioglitazone a while back and wanted to try controlling this with diet modification alone Have advised him that his HgbA1c used to be at 6.3% and 6.4% before he was started on Rx so his diabetes is actually worse now than before States that he would like to work on improving his diet for now - will recheck him again when he returns in a few months for his annual physical Plan To return in 4 to 6 months for his next annual physical examination Orders: Orders AMB Hemoglobin A1c 09/25/23 Z13.9 - Encounter for screening, unspecified Coding Level of Care Code Est Pt Level 4 (04132) Diagnoses Pure hypercholesterolemia E78.00 Essential hypertension I10 Type 2 diabetes mellitus with hyperglycemia, without long-term current use of insulin E11.65
== END 2023-09-25 12:24 | disposition home or self-care (01) ==
PROVIDERS: PCP Internal Medicine; Visit Provider Internal Medicine
DX: E11.65 Type 2 diabetes mellitus with hyperglycemia (principal)
CPT/HCPCS: 83036; 99214

== ENCOUNTER 2023-11-04 13:47 | Outpatient (AMB) | payer OTHER, SELFPAY ==
--- NOTE | 2023-11-04 13:53 | A.OFFPC_ITS ---
Vital Signs 11/04/23 13:54 Height 5 ft 8 in Weight 216 lb 0.4 oz BMI 32.8 BP 124/76 Blood Pressure Location Lt brachial Position Sitting Pulse 92 Pulse Source Pulse Oximeter Pulse Oximetry (%) 97 Oxygen Delivery Method Room Air Intake Visit Reasons: [facility] 10/28 low back pain Intake Note: Patient is here to follow-up after a visit the emergency department at [facility] on 10/29/2023 [employer] Required: No Allergies amlodipine Adverse Reaction (Intermediate, Verified 11/05/23 04:29) Chest pain lisinopril Adverse Reaction (Intermediate, Verified 11/05/23 04:29) Chest pain Medication List - Last Reconciled 11/05/23 by Jarvis Joseph MD gabapentin 100 mg PO TID heating pads As directed Tobacco use date assessed: 09/25/23 Dental Screening Dental Screen Date: 09/25/23 HPI [facility] 10/28 low back pain HPI Details Patient comes in today for his F follow up visit He went to the ER at [facility] last week for increasing low back pain 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 and that his low back pain started occurring shortly afterwards He denies any recent injury or trauma to his lower back and states that he has never had any problems with his back in the past He was seen at the ER at [facility] last month for the same complaint as well as pain over the back of his left thigh States that he was prescribed some gabapentin, which did not really help so he stopped taking it after a few days Patient states that he was hoping to get an MRI done on his lower back at the ER but was advised that he will need to check with his PCP regarding this No other acute complaints or symptoms were noted REPLACED BY [facility] Medical History (Updated 11/05/23 @ 04:44 by Jarvis Joseph MD) Type 2 diabetes mellitus with hyperglycemia, without long-term current use of insulin Obesity (BMI 30-39.9) Pure hypercholesterolemia Essential hypertension Surgical History No pertinent past surgical history Family History Father No problems noted. Mother COVID-19 Brother No problems noted. Brother No problems noted. Social History Alcohol intake: never Patient Tobacco Use Status: Never used Tobacco Tobacco use type: Cigarette e-Cigarette/Vaping Use: Never Used Second Hand Smoke Exposure: No service: No Cognitive needs: No Hearing needs: No Vision needs: No Questionnaire Thrive Questionnaire Date Thrive assessed: 09/25/23 I am a: Patient What is your living situation today?: I have a steady place to live Within the past 12 months, did the food you bought not last and you didn't have the money to get more?: Never true Within the past 12 months, did you worry whether your food would run out before you got money to buy more?: Never true Do you have trouble paying for medicines?: No Do you have trouble getting transportation to medical appointments?: No Do you have trouble paying your heating and electricity bill?: No Do you have trouble taking care of your child, family member or friend?: No Do you have trouble with day-to-day activities such as bathing, preparing meals, shopping, managing finances, etc.?: No Are you currently unemployed and looking for a job?: No Are you interested in more education?: No Please select the resources that you would like help with: None THRIVE Score: 0 AUDIT C Alcohol Use Questionnaire (AUDIT-C) 1. How often do you have a drink containing alcohol?: Never 3. How often do you have six or more drinks on one occasion?: Never Total Score: 0 Score Reviewed/Action Taken: Yes MIGUELITO-7 AMB Questionnaire MIGUELITO-7 Date MIGUELITO - 7 assessed: 09/25/23 Source: Developed by Drs. John Mcmahon, Monserrat Kinsey, Xavier Phoenix and colleagues, with an educational tiago from [employer]. Review of Systems Const Denies fatigue, Denies fever(s) and Denies headache(s) ENT Denies dysphagia, Denies dizziness, Denies otalgia, Denies headache(s), Denies neck pain, Denies odynophagia and Denies sore throat Card Denies chest pain, Denies palpitations and Denies dyspnea Resp Denies cough and Denies dyspnea GI Denies abdominal pain, Denies constipation, Denies dysphagia, Denies heartburn, Denies diarrhea, Denies nausea, Denies odynophagia and Denies vomiting Denies difficulty urinating, Denies dysuria, Reports nocturia and Reports urinary frequency Musc Reports back pain (over the lower back) and Denies neck pain Skin/Breast Denies rash Neuro Denies dizziness and Denies headache(s) Endo Denies fatigue and Denies palpitations Physical exam (Primary Care) Vital Signs: Last Vital Signs Pulse 92 11/04/23 13:54 BP 124/76 11/04/23 13:54 Pulse Ox 97 11/04/23 13:54 Oxygen Delivery Method Room Air 11/04/23 13:54 BMI result Body Mass Index 32.8 Tobacco/Smoking Status: Tobacco use Status Tobacco use date assessed 09/25/23 11/04/23 13:53 Patient Tobacco Use Status Never used Tobacco 11/04/23 13:53 Tobacco use type Cigarette 11/04/23 13:53 e-Cigarette/Vaping Use Never Used 11/04/23 13:53 Thrive Assessment: Date of Thrive Assessment Date Thrive assessed 09/25/23 11/04/23 13:53 Const General: no acute distress and alert HENMT Throat: Yes posterior oropharynx normal and Yes tonsils normal (no TP congestion) Neck Neck: Yes no lymphadenopathy and Yes supple Thyroid: Thyroid normal Resp Auscultation: clear to auscultation bilaterally, no rales and no wheezes Cardio Rate: regular rate Rhythm: regular rhythm Heart sounds: no murmurs GI Palpation (GI): Soft to palpation and nontender Auscultation: normal bowel sounds General: Yes no CVA tenderness Back/Spine/Pelvis Back: no CVA tenderness Thoracic/Lumbar Spine: straight leg raise negative bilaterally, paraspinal muscle tenderness bilaterally in the upper lumbar, in the mid lumbar and in the lower lumbar and No lumbar spinal tenderness Skin Rashes: no rashes Extrem General: Yes no clubbing, cyanosis or edema Assessment and Plan Assessment & Plan (1) Low back pain: Code(s): M54.50 - Low back pain, unspecified Qualifiers: Chronicity: acute Back pain laterality: bilateral Sciatica presence: without sciatica Qualified Code(s): M54.50 - Low back pain, unspecified Plan: Advised that his recent low back pain is likely due to musculoskeletal pain /lumbar strain, especially since he has no history of back injuries or problems Advised that an MRI this point would be premature and will most likely not be approved by his insurance company, as they tend to require imaging studies like x-rays done first as well as an unsuccessful trial of physical therapy before they will approve MRIs or CTs Will send patient for lumbar spine x-rays BERENICE for further evaluation Advised that if his x-rays come back unrevealing, will then refer him to physical therapy for his low back pain Have also advised patient that he can try applying some warm compress to his lower back PRN for symptomatic relief and he can also use some of the available OTC topical pain patches on an as-needed basis Per request, will send in a prescription for a heating pad to his local pharmacy, in case it is covered by his insurance Plan To return as scheduled in February 2024 for his annual physical examination Orders: Orders XR lumbar spine 2-3V 11/04/23 M54.50 - Low back pain, unspecified Medications: New heating pads As directed 1 ea 0RF M54.50 - Low back pain, unspecified Coding Level of Care Code Est Pt Level 3 (88585) Diagnoses Acute bilateral low back pain without sciatica M54.50 Chronicity: acute Back pain laterality: bilateral Sciatica presence: without sciatica
[2023-11-04 13:54] VITALS: BP 124/76; PULSE 92; O2SAT 97; BMI 32.8
== END 2023-11-04 14:41 | disposition home or self-care (01) ==
PROVIDERS: PCP Internal Medicine; Visit Provider Internal Medicine
DX: M54.50 Low back pain, unspecified (principal)
CPT/HCPCS: 99213

== ENCOUNTER 2023-11-04 14:52 | Outpatient (REF) | payer OTHER, SELFPAY ==
--- NOTE | ~2023-11-04 | XR_ITS ---
EXAMINATION: XR LUMBOSACRAL SPINE CLINICAL INFORMATION: Lower back pain. COMPARISON: None available. TECHNIQUE: AP and lateral views of the lumbar spine and lateral view of the lumbosacral junction. FINDINGS: Vertebral body heights are normal. There is a slight lumbar dextroscoliosis. The lumbar disc spaces are well-maintained. No acute fracture or spondylolisthesis is seen. There is multi-level very mild lumbar endplate arthropathy. The posterior elements are intact. The paravertebral soft tissues are unremarkable. XR/XR lumbar spine 2-3V IMPRESSION: 1. There is a slight lumbar dextroscoliosis. 2. The lumbar disc spaces are well-maintained. 3. No acute fracture or spondylolisthesis is seen. 4. There is multi-level very mild lumbar endplate arthropathy.
== END 2023-11-04 14:53 | disposition home or self-care (01) ==
LOC: HO.XRAY 14:52
PROVIDERS: PCP Internal Medicine; Visit Provider Internal Medicine
DX: M54.50 Low back pain, unspecified (principal)
CPT/HCPCS: 72100

== ENCOUNTER 2024-05-02 11:02 | Outpatient (AMB) | payer OTHER, SELFPAY ==
[2024-05-02 11:04] VITALS: BP 136/82; PULSE 74; O2SAT 96; BMI 34.2
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
--- OUTSIDE RECORDS SUMMARY | 2024-05-02 16:01 | XMS_ITS | Clinical Summary ---
Author Organization [facility] ity Address [address] [place] [address] Care Team Providers Care Stave Hewer Name Role Phone Unavailable Primary Care Provider Unavailabl e Social History Tobacco Use Types Packs/Day Years Used Date Smoking Tobacco: Never Assessed Sex and Gender Information Value Date Recorded Sex Assigned at Not on file Gender Identity Not on file Sexual Orientation Not on file Plan of Treatment Health Maintenance Due Date Last Done Comments DTaP,Tdap,and Td Vaccines (1 - Tdap) 09/13/1987 Hepatitis B Vaccines (1 of 3 - 19+ 3-dose series) 09/13/1987 Zoster Vaccines (1 of 2) 2018 COVID-19 Vaccine (2023-2 5 season) 2023 Influenza Vaccine (#1) 2023 Cholesterol Screening (Lipid Panel) 01/14/2024 Colorectal Cancer Screening: Colonoscopy 01/14/2024 Depression Screening 01/14/2024 HIV Screening 01/14/2024 Hepatitis C Screening 01/14/2024 Social Influencers of Health Screening 01/14/2024 HIB Vaccines Aged Out No longer eligi ble based on patient's age to complete this topic HPV Vaccines Aged Out No longer eligi ble based on patient's age to complete this topic Hepatitis A Vaccines Aged Out No long er eligible based on patient's age to complete this topic IPV Vaccines Aged Out No longer eligi ble based on patient's age to complete this topic MMR Vaccines Aged Out No longer eligi ble based on patient's age to complete this topic Meningococcal ACWY Vaccine Aged Out N o longer eligible based on patient's age to complete this topic Pneumococcal Vaccine: Pediat rics (0 to 5 Years) and At-Risk Patients (6 to 64 Years) Aged Out No longer eligible b ased on patient's age to complete this topic RSV Immunization Patients Un kalin 20 months Aged Out No longer eligible b ased on patient's age to complete this topic Varicella Vaccines Aged Out No longer eligible based on patient's age to complete this topic
== END 2024-05-02 12:38 | disposition home or self-care (01) ==
PROVIDERS: PCP Internal Medicine
DX: M25.561 Pain in right knee (principal); M25.571 Pain in right ankle and joints of right foot; Z04.3 Encounter for examination and observation following other accident; M25.471 Effusion, right ankle; S01.01XD Laceration without foreign body of scalp, subsequent encounter; V89.2XXA Person injured in unspecified motor-vehicle accident, traffic, initial encounter; I10 Essential (primary) hypertension

== ENCOUNTER → 2024-05-02 11:02 | Outpatient (BNVA) | payer OTHER, SELFPAY | PROVIDERS: PCP Internal Medicine | DX: M54.50 Low back pain, unspecified (principal); E11.9 Type 2 diabetes mellitus without complications; I10 Essential (primary) hypertension; E66.9 Obesity, unspecified; I45.10 Unspecified right bundle-branch block; E78.00 Pure hypercholesterolemia, unspecified; M25.561 Pain in right knee; M25.571 Pain in right ankle and joints of right foot; M25.471 Effusion, right ankle; S01.01XD Laceration without foreign body of scalp, subsequent encounter; V89.2XXD Person injured in unspecified motor-vehicle accident, traffic, subsequent encounter; Z68.34 Body mass index [BMI] 34.0-34.9, adult | CPT/HCPCS: 96127 ==